=== PATIENT | male | born 1955 | race Caucasian/White ===

== ENCOUNTER 2020-04-05 08:52 | Outpatient (REF) | payer OTHER, SELFPAY | END 2020-04-05 08:53 | disposition home or self-care (01) | LOC: HO.BBR 08:52 | PROVIDERS: Visit Provider Family Medicine | DX: E83.110 Hereditary hemochromatosis (principal) | CPT/HCPCS: 99195 ==

== ENCOUNTER 2020-06-01 08:49 | Outpatient (REF) | payer OTHER, SELFPAY | END 2020-06-01 08:50 | disposition home or self-care (01) | LOC: HO.BBR 08:49 | PROVIDERS: Visit Provider Family Medicine | DX: Z13.89 Encounter for screening for other disorder (principal) ==

== ENCOUNTER 2020-06-01 09:26 | Outpatient (REF) | payer SELFPAY ==
[2020-06-01 10:11] LABS: Cholesterol 177 mg/dL
== END 2020-06-01 09:27 | disposition home or self-care (01) ==
LOC: HO.LNC 09:26
PROVIDERS: Visit Provider Pathology Anatomic Pathology & Clinical Pathology
DX: Z76.89 Persons encountering health services in other specified circumstances (principal)
CPT/HCPCS: 82465

== ENCOUNTER 2020-08-15 09:55 | Outpatient (REF) | payer OTHER, SELFPAY | END 2020-08-15 09:56 | disposition home or self-care (01) | LOC: HO.BBR 09:55 | PROVIDERS: Visit Provider Family Medicine | DX: Z13.89 Encounter for screening for other disorder (principal) ==

== ENCOUNTER 2020-10-13 09:04 | Outpatient (REF) | payer OTHER, SELFPAY | END 2020-10-13 09:05 | disposition home or self-care (01) | LOC: HO.BBR 09:04 | PROVIDERS: Visit Provider Family Medicine | DX: Z13.89 Encounter for screening for other disorder (principal) ==

== ENCOUNTER 2020-12-11 08:58 | Outpatient (REF) | payer MEDICARE, SELFPAY | END 2020-12-11 08:59 | disposition home or self-care (01) | LOC: HO.BBR 08:58 | PROVIDERS: PCP Nurse Practitioner Family; Visit Provider Nurse Practitioner Family | DX: Z13.89 Encounter for screening for other disorder (principal) ==

== ENCOUNTER 2021-02-09 08:53 | Outpatient (REF) | payer MEDICARE, SELFPAY | END 2021-02-09 08:54 | disposition home or self-care (01) | LOC: HO.BBR 08:53 | PROVIDERS: Visit Provider Nurse Practitioner Family | DX: Z13.89 Encounter for screening for other disorder (principal) ==

== ENCOUNTER 2021-04-10 08:32 | Outpatient (REF) | payer MEDICARE, SELFPAY | END 2021-04-10 08:33 | disposition home or self-care (01) | LOC: HO.BBR 08:32 | PROVIDERS: Visit Provider Nurse Practitioner Family | DX: Z13.89 Encounter for screening for other disorder (principal) ==

== ENCOUNTER 2021-06-19 08:45 | Outpatient (REF) | payer MEDICARE, SELFPAY | END 2021-06-19 08:46 | disposition home or self-care (01) | LOC: HO.BBR 08:45 | PROVIDERS: Visit Provider Nurse Practitioner Family | DX: Z13.89 Encounter for screening for other disorder (principal) ==

== ENCOUNTER 2021-08-16 09:03 | Outpatient (REF) | payer MEDICARE, SELFPAY | END 2021-08-16 09:04 | disposition home or self-care (01) | LOC: HO.BBR 09:03 | PROVIDERS: Visit Provider Nurse Practitioner Family | DX: Z13.89 Encounter for screening for other disorder (principal) ==

== ENCOUNTER 2021-10-12 09:10 | Outpatient (REF) | payer MEDICARE, SELFPAY | END 2021-10-12 09:11 | disposition home or self-care (01) | LOC: HO.BBR 09:10 | PROVIDERS: Visit Provider Nurse Practitioner Family | DX: Z13.89 Encounter for screening for other disorder (principal) ==

== ENCOUNTER 2021-12-17 09:04 | Outpatient (REF) | payer MEDICARE, SELFPAY | END 2021-12-17 09:05 | disposition home or self-care (01) | LOC: HO.BBR 09:04 | PROVIDERS: Visit Provider Nurse Practitioner | DX: Z13.89 Encounter for screening for other disorder (principal) ==

== ENCOUNTER 2022-03-14 10:01 | Outpatient (REF) | payer MEDICARE, SELFPAY | END 2022-03-14 10:02 | disposition home or self-care (01) | LOC: HO.BBR 10:01 | PROVIDERS: Visit Provider Nurse Practitioner | DX: Z13.89 Encounter for screening for other disorder (principal) ==

== ENCOUNTER 2022-05-21 09:00 | Outpatient (REF) | payer MEDICARE, SELFPAY | END 2022-05-21 09:01 | disposition home or self-care (01) | LOC: HO.BBR 09:00 | PROVIDERS: Visit Provider Nurse Practitioner | DX: Z13.89 Encounter for screening for other disorder (principal) ==

== ENCOUNTER 2022-08-02 11:04 | Outpatient (REF) | payer MEDICARE, SELFPAY | END 2022-08-02 11:05 | disposition home or self-care (01) | LOC: HO.BBR 11:04 | PROVIDERS: Visit Provider Nurse Practitioner | DX: Z13.89 Encounter for screening for other disorder (principal) ==

== ENCOUNTER 2022-10-04 09:01 | Outpatient (REF) | payer MEDICARE, SELFPAY | END 2022-10-04 09:02 | disposition home or self-care (01) | LOC: HO.BBR 09:01 | PROVIDERS: Visit Provider Nurse Practitioner | DX: Z13.89 Encounter for screening for other disorder (principal) ==

== ENCOUNTER 2022-12-27 11:06 | Outpatient (REF) | payer MEDICARE, SELFPAY ==
[2022-12-27 11:39] LABS: Hematocrit 41.5 % (42.0-52.0); Hemoglobin 14.3 g/dl (14.0-18.0)
== END 2022-12-27 11:07 | disposition home or self-care (01) ==
LOC: HO.BBR 11:06
PROVIDERS: Visit Provider Nurse Practitioner
DX: E83.110 Hereditary hemochromatosis (principal)
CPT/HCPCS: 36415; 85014; 85018

== ENCOUNTER 2023-03-07 14:16 | Outpatient (REF) | payer MEDICARE, SELFPAY | END 2023-03-07 14:17 | disposition home or self-care (01) | LOC: HO.BBR 14:16 | PROVIDERS: Visit Provider Nurse Practitioner | DX: Z13.89 Encounter for screening for other disorder (principal) ==

== ENCOUNTER 2023-05-14 09:01 | Outpatient (REF) | payer MEDICARE, SELFPAY | END 2023-05-14 09:02 | disposition home or self-care (01) | LOC: HO.BBR 09:01 | PROVIDERS: PCP Nurse Practitioner; Visit Provider Nurse Practitioner | DX: Z13.89 Encounter for screening for other disorder (principal) ==

== ENCOUNTER 2023-08-13 08:59 | Outpatient (REF) | payer MEDICARE, SELFPAY | END 2023-08-13 09:00 | disposition home or self-care (01) | LOC: HO.BBR 08:59 | PROVIDERS: PCP Nurse Practitioner; Visit Provider Nurse Practitioner | DX: Z13.89 Encounter for screening for other disorder (principal) ==

== ENCOUNTER 2023-10-22 10:21 | Outpatient (REF) | payer MEDICARE, SELFPAY | END 2023-10-22 10:22 | disposition home or self-care (01) | LOC: HO.BBR 10:21 | PROVIDERS: PCP Nurse Practitioner; Visit Provider Nurse Practitioner | DX: Z13.89 Encounter for screening for other disorder (principal) ==

== ENCOUNTER 2023-11-13 10:27 | Outpatient (REF) | payer MEDICARE, SELFPAY | END 2023-11-13 10:28 | disposition home or self-care (01) | LOC: HO.BBR 10:27 | PROVIDERS: PCP Nurse Practitioner; Visit Provider Nurse Practitioner | DX: Z13.89 Encounter for screening for other disorder (principal) ==

== ENCOUNTER 2024-01-23 09:04 | Outpatient (REF) | payer MEDICARE, SELFPAY | END 2024-01-23 09:05 | disposition home or self-care (01) | LOC: HO.BBR 09:04 | PROVIDERS: PCP Nurse Practitioner; Visit Provider Nurse Practitioner | DX: Z13.89 Encounter for screening for other disorder (principal) ==

== ENCOUNTER 2024-04-09 09:12 | Outpatient (REF) | payer MEDICARE, SELFPAY | END 2024-04-09 09:13 | disposition home or self-care (01) | LOC: HO.BBR 09:12 | PROVIDERS: PCP Nurse Practitioner; Visit Provider Nurse Practitioner | DX: Z13.89 Encounter for screening for other disorder (principal) ==

== ENCOUNTER 2024-06-21 09:17 | Outpatient (REF) | payer MEDICARE, SELFPAY ==
--- OUTSIDE RECORDS SUMMARY | 2024-06-21 09:20 | XMS_ITS ---
Author Name [facility] Organization Unknown Results Test Name/Text Value Interpretation Date Range Source TSH WITH REFLEX T4 FREE 2.18uIU/mL Normal [id number] 0.55 - 4.78 [facility] LDL 102mg/dL Normal [id number] - 160 [facility] TRIGLYCERIDE WITH LDLD REFLEX 100mg/dL Normal [id number] - 150 [facility] CHOLESTEROL 169mg/dL Normal [id number] - 200 [facility] HDL 47mg/dL Normal 40 - 60 [facility] TRIGLYCERIDE 100mg/dL Normal [id number] - 150 [facility] GFRE 83 Normal [id number] 60 - [facility] FERRITIN 35ng/mL Normal 10 - 307 [facility] PROSTATE SPECIFIC ANTIGEN 0.73ng/mL Normal [id number] 0 - 4 [facility] IRON BINDING CAPACITY,TOTAL 307ug/dL Normal [id number] 250 - 425 [facility] IRON 173ug/dL Normal [id number] 65 - 175 [facility] ALBUMIN 4.6g/dL Normal [id number] 3.2 - 4.8 [facility] SODIUM 139mmol/L Normal [id number] 136 - 145 [facility] GLUCOSE 95mg/dL Normal 74 - 106 [facility] BUN 14mg/dL Normal [id number] 9 - 23 [facility] CALCIUM 9.2mg/dL Normal [id number] 8.7 - 10.4 [facility] BILIRUBIN,TOTAL 0.9mg/dL Normal 0.3 - 1.2 C [facility] CHLORIDE 108mmol/L Above high normal 98 - 107 [facility] POTASSIUM SERUM 4.3mmol/L Normal [id number] 3.5 - 5.1 C [facility] CO2 28mmol/L Normal 20 - 31 [facility] ALKALINE PHOSPHATASE 48U/L Normal [id number] 45 - 1 29 [facility] AST (SGOT) 23U/L Normal 0 - 34 [facility] GLOBULIN 2.4g/dL Normal [facility] A/G RATIO 1.9g/dL Normal [facility] ALT (SGPT) 8U/L Below low normal 10 - 49 [facility] CREATININE 0.95mg/dL Normal 0.7 - 1.3 [facility] BUN/CREAT.RATIO 14.7 Normal [facility] PROTEIN, TOTAL 7g/dL Normal 5.7 - 8.2 [facility] WBC 4K/uL Normal [id number] 3.7 - 10.3 [facility] ABSOLUTE GRANULOCYTES 2.1K/uL Below low normal [id number] 2.2 - 7.3 [facility] ABSOLUTE BASO 0K/uL Normal 0 - 0.2 [facility] RBC 4.44M/uL Normal 4.3 - 6 [facility] IMMATURE GRANULOCYTES 0% Normal 0 - 0 .45 [facility] EOSINOPHILS 3% Normal 0 - 6 [facility] MPV 10fL Normal [id number] 8 - 12 [facility] ABSOLUTE MONOS 0.4K/uL Normal 0.2 - 1.5 CT [facility] BASOPHILS 1% Normal 0 - 2 [facility] NUCLEATED RBC 0% Normal 0 - 0.2 [facility] MCV 92fL Normal [id number] 83 - 102 [facility] MCH 32PG Normal 27 - 34 [facility] HCT 40.9% Normal 40 - 52 [facility] ABSOLUTE LYMPHS 1.4K/uL Below low normal [id number] 1.5 - 4.9 [facility] GRANULOCYTES 52% Normal 23 - 78 [facility] MONOCYTES 10% Normal [id number] 0 - 12 [facility] ABSOLUTE EOS 0.1K/uL Normal [id number] 0 - 0.7 [facility] LYMPHS 35% Normal [id number] 16 - 50 [facility] ABSOLUTE IMMATURE GRANULOCYTES 0K/uL Normal [id number] 0 - 0.3 [facility] HGB 14g/dL Normal [id number] 13.5 - 18 [facility] RDW 11.8% Normal [id number] 11.1 - 13.3 [facility] PLATELET COUNT 154K/uL Normal [id number] 150 - 480 [facility] MCHC 34.2g/dL Normal [id number] 31 - 36 [facility] ABSOLUTE NUCLEATED RBC 0K/uL Normal [id number] 0 - 0.012 [facility] PATIENT FASTING? NO Normal [id number] [facility] FERRITIN 44ng/mL Normal [id number] 26 - 388 [facility] HGB 14.1g/dL Normal [id number] 13.5 - 18 [facility] HCT 41.4% Normal [id number] 40 - 52 [facility] LDL 108 Normal [id number] 0 - 129 [facility] TRIGLYCERIDE WITH LDLD REFLEX 51mg/dL Normal [id number] - 150 [facility] CHOLESTEROL 168mg/dL Normal [id number] - 200 [facility] HDL 50mg/dL Normal [id number] - [facility] TSH WITH REFLEX T4 FREE 1.74uIU/mL Normal [id number] 0.35 - 4.5 [facility] GFRE 99 Normal [id number] 60 - [facility] ALBUMIN 3.7g/dL Normal [id number] 3.4 - 5 [facility] SODIUM 145mmol/L Normal [id number] 136 - 145 [facility] GLUCOSE 106mg/dL Above high normal [id number] 74 - 100 [facility] BUN 14mg/dL Normal [id number] 7 - 18 [facility] CALCIUM 8.8mg/dL Normal [id number] 8.5 - 10.1 [facility] BILIRUBIN,TOTAL 0.8mg/dL Normal [id number] 0.2 - [address] [facility] CHLORIDE 113mmol/L Above high normal [id number] 98 - 107 [facility] POTASSIUM SERUM 4.1mmol/L Normal [id number] 3.5 - 5.1 C [facility] CO2 28mmol/L Normal [id number] 21 - 32 [facility] ALKALINE PHOSPHATASE 52U/L Normal [id number] 50 - 1 36 [facility] AST (SGOT) 16U/L Normal [id number] 15 - 37 [facility] GLOBULIN 3g/dL Normal [id number] 2.4 - 4.2 [facility] A/G RATIO 1.2g/dL Normal [id number] [facility] ALT (SGPT) 19U/L Normal [id number] 12 - 78 [facility] BUN/CREAT.RATIO 17.1 Normal [id number] C [facility] CREATININE 0.82mg/dL Normal [id number] 0.55 - 1.3 [facility] PROTEIN, TOTAL 6.7g/dL Normal [id number] 6.4 - 8.2 CT [facility] PROSTATE SPECIFIC ANTIGEN 0.66ng/mL Normal [id number] 0 - 4.5 [facility] WBC 5.5K/uL Normal [id number] 3.7 - 10.3 [facility] ABSOLUTE GRANULOCYTES 3.7K/uL Normal [id number] 2.2 - 7.3 [facility] ABSOLUTE BASO 0K/uL Normal [id number] 0 - 0.2 [facility] RBC 4.29M/uL Below low normal [id number] 4.3 - 6 [facility] IMMATURE GRANULOCYTES 0% Normal [id number] 0 - 0 .45 [facility] EOSINOPHILS 3% Normal [id number] 0 - 6 [facility] MPV 10fL Normal [id number] 8 - 12 [facility] ABSOLUTE MONOS 0.5K/uL Normal [id number] 0.2 - 1.5 [facility] BASOPHILS 1% Normal [id number] 0 - 2 [facility] NUCLEATED RBC 0% Normal [id number] 0 - 0.2 [facility] MCV 93fL Normal [id number] 83 - 102 [facility] MCH 31PG Normal [id number] 27 - 34 [facility] HCT 39.8% Below low normal [id number] 40 - 52 [facility] ABSOLUTE LYMPHS 1.2K/uL Below low normal [id number] 1.5 - 4.9 [facility] GRANULOCYTES 67% Normal [id number] 23 - 78 [facility] MONOCYTES 9% Normal [id number] 0 - 12 [facility] ABSOLUTE EOS 0.1K/uL Normal [id number] 0 - 0.7 [facility] LYMPHS 21% Normal [id number] 16 - 50 [facility] ABSOLUTE IMMATURE GRANULOCYTES 0K/uL Normal [id number] 0 - 0.3 [facility] HGB 13.2g/dL Below low normal [id number] 13.5 - 18 [facility] RDW 11.8% Normal [id number] 11.1 - 13.3 [facility] PLATELET COUNT 159K/uL Normal [id number] 150 - 480 [facility] MCHC 33.2g/dL Normal [id number] 31 - 36 [facility] ABSOLUTE NUCLEATED RBC 0K/uL Normal [id number] 0 - 0.012 [facility] PATIENT FASTING? YES Normal [id number] [facility] History of Medication Use Medication Directions Dispensed Refills Start Date End Date [facility] dofetilide 500 mcg capsule Take 1 capsule twice a day by oral route. 02/17/2024 completed Plavix 75 mg tablet 1 (one) Oral daily completed Multivital 1 Oral Daily 02/16/2024 compl eted diazepam 5 mg tablet 1 Oral needed 02/16/2024 complete d aspirin 81 mg tablet,delayed release 1 Oral daily 02/16/2024 completed diazepam 10 mg tablet 1/2 Oral as needed 02/16/2024 comple agata mirtazapine 15 mg tablet 1 Oral needed 02/17/2024 complete d Cardizem CD 120 mg capsule,extended release Take 1 capsule every day by oral route. 02/16/2024 completed Bystolic 5 mg tablet 1 Oral needed 02/17/2024 complete d diltiazem CD 180 mg capsule,extended release 24 hr Take 1 capsule every day by oral route. 02/16/2024 completed metoprolol tartrate 25 mg tablet 1 (one) Oral as needed 02/16/2024 completed Eliquis 5 mg tablet Take 1 tablet twice a day by oral route. 02/16/2024 completed pantoprazole 40 mg tablet,delayed release 1 Oral daily 02/16/2024 completed polyethylene glycol (GaviLyte-C) 240 g solution Take 4,000 mL by mouth once as needed for Colonoscopy/GI Procedure Preparation. Take as directed for Colonoscopy/GI Procedure. See administration instructions. 04/28/2022 aborted diazepam (VALIUM) 5 MG tablet Take 5 mg by mouth 4 times daily (every 6 hours) as needed for anxiety. 04/28/2022 active diltiazem (CARDIZEM CD) 120 MG 24 hr capsule Take 1 capsule (120 mg total) by mouth daily. 04/28/2022 aborted ibuprofen (MOTRIN) 200 MG tablet Take 200 mg by mouth 4 times daily (every 6 hours) as needed for mild pain. 04/28/2022 active Multiple Vitamins-Minerals (MULTIVITAMIN ADULT PO) Take by mouth. 04/28/2022 active acetaminophen (TYLENOL) 500 MG tablet Take 500 mg by mouth 4 times daily (every 6 hours) as needed for mild pain. 04/28/2022 active Problems Problem Status Onset Date Problem Type Date of Resoluti on Source Overweight active 2018-03-20 ProblemAct [facility] Sinus node dysfunction active 2020-12-04 [facility] Atrial fibrillation, persistent active 2019-07-05 [facility] Atrial fibrillation active 2019-08-09 [facility] Immunizations Vaccine Date Source Lot Number Status Influenza, Unspecified 04/23/2019 [facility] co mpleted
== END 2024-06-21 09:18 | disposition home or self-care (01) ==
LOC: HO.BBR 09:17
PROVIDERS: PCP Nurse Practitioner; Visit Provider Nurse Practitioner
DX: Z13.89 Encounter for screening for other disorder (principal)

== ENCOUNTER 2024-09-06 09:01 | Outpatient (REF) | payer MEDICARE, SELFPAY | END 2024-09-06 09:02 | disposition home or self-care (01) | LOC: HO.BBR 09:01 | PROVIDERS: PCP Nurse Practitioner; Visit Provider Nurse Practitioner | DX: Z13.89 Encounter for screening for other disorder (principal) ==

== ENCOUNTER 2024-11-16 08:59 | Outpatient (REF) | payer MEDICARE, SELFPAY ==
--- OUTSIDE RECORDS SUMMARY | 2024-11-16 09:27 | XMS_ITS | Encounter Summary ---
Author Organization [facility] Address [address] [place] [address] Care Team Providers Care Tafe Registrar Name Role Phone Micaela Prasad APRN Primary Care Provider [phone] William Ocasio DO Unavailable Encounter Details Date Type Department Care Team (Late st Contact Info) Description 07/03/2021 Prep for Surgery [facility] Heart & V[facility] [place] - Electrophysiology [address] [place] [phone] Kandi Cedeno, CONSTRUCTION SITE CROSSING GUARD [address] [address] Social History Tobacco Use Types Packs/Day Years Used Date Smoking Tobacco: Never Smokeless Tobacco: Never Alcohol Use Standard Drinks/Week Comments Yes 2 (1 standard drink = 0.6 oz pur e alcohol) occasional 2x/ weekly 1 drink Sex and Gender Information Value Date Recorded Sex Assigned at Not on file Legal Sex Male 5:24 PM EDT Gender Identity Not on file Sexual Orientation Not on file COVID-19 Exposure Response Date Recorded In the last month, have you been in contact with someone who was confirmed or suspected to have Coronavirus / COVID-19? No / Unsure 07/04/2021 6:25 AM EST documented as of this encounter Plan of Treatment Not on file documented as of this encounter Visit Diagnoses Not on filedocumented in this encounter Care Teams Tafe Registrar Relationship Specialty Start Date End Date Micaela Prasad APRN PCP - General General Medicine 05/27/18 William Ocasio DO [address] [place] [id number] Stenciling Machine Tender Gastroenterology 09/10/21 documented as of this encounter
== END 2024-11-16 09:00 | disposition home or self-care (01) ==
LOC: HO.BBR 08:59
PROVIDERS: PCP Nurse Practitioner; Visit Provider Nurse Practitioner
DX: Z13.89 Encounter for screening for other disorder (principal)

== ENCOUNTER 2025-01-24 08:05 | Outpatient (REF) | payer MEDICARE, SELFPAY ==
--- OUTSIDE RECORDS SUMMARY | 2025-01-24 08:09 | XMS_ITS ---
Author Name [facility] Organization Unknown Results Test Name/Text Value Interpretation Date Range Source GFRE 83.0 Normal 06/08/2024 60 - [facility] PROSTATE SPECIFIC ANTIGEN 0.73 ng/mL Normal 06/08/2024 0 - 4 [facility] IRON 173.0 ug/dL Normal 06/08/2024 65 - 175 [facility] CREATININE 0.95 mg/dL Normal 06/08/2024 0.7 - 1.3 [facility] ALKALINE PHOSPHATASE 48.0 U/L Normal 06/08/2024 45 - 129 [facility] A/G RATIO 1.9 g/dL Normal 06/08/2024 [facility] BUN 14.0 mg/dL Normal 06/08/2024 9 - 23 [facility] GLOBULIN 2.4 g/dL Normal 06/08/2024 [facility] BILIRUBIN,TOTAL 0.9 mg/dL Normal 06/08/2024 0.3 - 1.2 [facility] BUN/CREAT.RATIO 14.7 Normal 06/08/2024 [facility] CO2 28.0 mmol/L Normal 06/08/2024 20 - 31 [facility] POTASSIUM SERUM 4.3 mmol/L Normal 06/08/2024 3.5 - 5.1 [facility] PROTEIN, TOTAL 7.0 g/dL Normal 06/08/2024 5.7 - 8.2 [facility] ALT (SGPT) 8.0 U/L Below low normal 06/08/2024 10 - 49 C [facility] CHLORIDE 108.0 mmol/L Above high normal 06/08/2024 98 - 107 [facility] AST (SGOT) 23.0 U/L Normal 06/08/2024 0 - 34 [facility] ALBUMIN 4.6 g/dL Normal 06/08/2024 3.2 - 4.8 [facility] GLUCOSE 95.0 mg/dL Normal 06/08/2024 74 - 106 [facility] CALCIUM 9.2 mg/dL Normal 06/08/2024 8.7 - 10.4 [facility] SODIUM 139.0 mmol/L Normal 06/08/2024 136 - 145 [facility] PATIENT FASTING? NO Normal 06/08/2024 [facility] FERRITIN 35.0 ng/mL Normal 06/08/2024 10 - 307 [facility] TSH WITH REFLEX T4 FREE 2.18 uIU/mL Normal 06/08/2024 0.55 - 4.78 [facility] TRIGLYCERIDE 100.0 mg/dL Normal 06/08/2024 - [facility] IRON BINDING CAPACITY,TOTAL 307.0 ug/dL Normal 06/08/2024 250 - 425 [facility] LDL 102.0 mg/dL Normal 06/08/2024 - 160 [facility] HDL 47.0 mg/dL Normal 06/08/2024 40 - 60 [facility] CHOLESTEROL 169.0 mg/dL Normal 06/08/2024 - 200 [facility] TRIGLYCERIDE WITH LDLD REFLEX 100.0 mg/dL Normal 06/08/2024 - 150 [facility] ABSOLUTE BASO 0.0 K/uL Normal 06/08/2024 0 - 0.2 [facility] ABSOLUTE GRANULOCYTES 2.1 K/uL Below low normal 06/08/2024 2.2 - 7.3 [facility] IMMATURE GRANULOCYTES 0.0 % Normal 06/08/2024 0 - 0.4 5 [facility] EOSINOPHILS 3.0 % Normal 06/08/2024 0 - 6 [facility] WBC 4.0 K/uL Normal 06/08/2024 3.7 - 10.3 [facility] MCHC 34.2 g/dL Normal 06/08/2024 31 - 36 [facility] NUCLEATED RBC 0.0 % Normal 06/08/2024 0 - 0.2 [facility] ABSOLUTE EOS 0.1 K/uL Normal 06/08/2024 0 - 0.7 CT[facility] ABSOLUTE IMMATURE GRANULOCYTES 0.0 K/uL Normal 06/08/2024 0 - 0.3 [facility] BASOPHILS 1.0 % Normal 06/08/2024 0 - 2 [facility] PLATELET COUNT 154.0 K/uL Normal 06/08/2024 150 - 480 [facility] ABSOLUTE NUCLEATED RBC 0.0 K/uL Normal 06/08/2024 0 - 0. 012 [facility] MCH 32.0 PG Normal 06/08/2024 27 - 34 [facility] MCV 92.0 fL Normal 06/08/2024 83 - 102 [facility] RDW 11.8 % Normal 06/08/2024 11.1 - 13.3 [facility] HCT 40.9 % Normal 06/08/2024 40 - 52 [facility] GRANULOCYTES 52.0 % Normal 06/08/2024 23 - 78 [facility] MH ABSOLUTE LYMPHS 1.4 K/uL Below low normal 06/08/2024 1.5 - 4.9 [facility] HGB 14.0 g/dL Normal 06/08/2024 13.5 - 18 [facility] MONOCYTES 10.0 % Normal 06/08/2024 0 - 12 [facility] RBC 4.44 M/uL Normal 06/08/2024 4.3 - 6 [facility] LYMPHS 35.0 % Normal 06/08/2024 16 - 50 [facility] ABSOLUTE MONOS 0.4 K/uL Normal 06/08/2024 0.2 - 1.5 [facility] MPV 10.0 fL Normal 06/08/2024 8 - 12 [facility] FERRITIN 44.0 ng/mL Normal 11/11/2023 26 - 388 [facility] HGB 14.1 g/dL Normal 11/11/2023 13.5 - 18 [facility] HCT 41.4 % Normal 11/11/2023 40 - 52 [facility] TSH WITH REFLEX T4 FREE 1.74 uIU/mL Normal 06/05/2023 0.35 - 4.5 [facility] PROSTATE SPECIFIC ANTIGEN 0.66 ng/mL Normal 06/05/2023 0 - 4.5 [facility] HDL 50.0 mg/dL Normal 06/05/2023 - [facility] LDL 108.0 Normal 06/05/2023 0 - 129 [facility] TRIGLYCERIDE WITH LDLD REFLEX 51.0 mg/dL Normal 06/05/2023 - 150 [facility] CHOLESTEROL 168.0 mg/dL Normal 06/05/2023 - 200 [facility] CHLORIDE 113.0 mmol/L Above high normal 06/05/2023 98 - 107 [facility] PROTEIN, TOTAL 6.7 g/dL Normal 06/05/2023 6.4 - 8.2 [facility] 0.82 mg/dL Normal 06/05/2023 0.55 - [facility] GLUCOSE 106.0 mg/dL Above high normal 06/05/2023 74 - 100 [facility] GLOBULIN 3.0 g/dL Normal 06/05/2023 2.4 - 4.2 [facility] BUN/CREAT.RATIO 17.1 Normal 06/05/2023 [facility] ALT (SGPT) 19.0 U/L Normal 06/05/2023 12 - 78 [facility] AST (SGOT) 16.0 U/L Normal 06/05/2023 15 - 37 [facility] A/G RATIO 1.2 g/dL Normal [facility]05[facility]20[facility] POT[facility]SIUM [facility] 4.1 mmol/L Normal 06/05/2023 3.5 - 5.1 [facility] CALCIUM 8.8 mg/dL Normal 06/05/2023 8.5 - 10.1 [facility] ALKALINE PHOSPHATASE 52.0 U/L Normal 06/05/2023 50 - 136 [facility] BUN 14.0 mg/dL Normal 06/05/2023 7 - 18 [facility] ALBUMIN 3.7 g/dL Normal 06/05/2023 3.4 - 5 [facility] SODIUM 145.0 mmol/L Normal 06/05/2023 136 - 145 CT[facility] CO2 28.0 mmol/L Normal 06/05/2023 21 - 32 [facility] H BILIRUBIN,TOTAL 0.8 mg/dL Normal 06/05/2023 0.2 - 1 [facility]H PATIENT FASTING? YES Normal 06/05/2023 CT [facility] GFRE 99.0 Normal 06/05/2023 60 - [facility] PLATELET COUNT 159.0 K/uL Normal 06/05/2023 150 - 480 [facility] ABSOLUTE LYMPHS 1.2 K/uL Below low normal 06/05/2023 1.5 - 4.9 [facility] NUCLEATED RBC 0.0 % Normal 06/05/2023 0 - 0.2 [facility] ABSOLUTE BASO 0.0 K/uL Normal 06/05/2023 0 - 0.2 [facility] ABSOLUTE MONOS 0.5 K/uL Normal 06/05/2023 0.2 - 1.5 [facility] IMMATURE GRANULOCYTES 0.0 % Normal 06/05/2023 0 - 0.4 5 [facility] ABSOLUTE GRANULOCYTES 3.7 K/uL Normal 06/05/2023 2.2 - 7 .3 [facility] LYMPHS 21.0 % Normal 06/05/2023 16 - 50 [facility] HCT 39.8 % Below low normal 06/05/2023 40 - 52 [facility] ABSOLUTE NUCLEATED RBC 0.0 K/uL Normal 06/05/2023 0 - 0. 012 [facility] GRANULOCYTES 67.0 % Normal 06/05/2023 23 - 78 [facility] MH WBC 5.5 K/uL Normal 06/05/2023 3.7 - 10.3 [facility] MCV 93.0 fL Normal 06/05/2023 83 - 102 [facility] RDW 11.8 % Normal 06/05/2023 11.1 - 13.3 [facility] H ABSOLUTE IMMATURE GRANULOCYTES 0.0 K/uL Normal 06/05/2023 0 - 0.3 [facility] ABSOLUTE EOS 0.1 K/uL Normal 06/05/2023 0 - 0.7 [facility] MH RBC 4.29 M/uL Below low normal 06/05/2023 4.3 - 6 CT [facility] MONOCYTES 9.0 % Normal 06/05/2023 0 - 12 [facility] MCH 31.0 PG Normal 06/05/2023 27 - 34 [facility] EOSINOPHILS 3.0 % Normal 06/05/2023 0 - 6 [facility] H MPV 10.0 fL Normal 06/05/2023 8 - 12 [facility] HGB 13.2 g/dL Below low normal 06/05/2023 13.5 - 18 CT [facility] BASOPHILS 1.0 % Normal 06/05/2023 0 - 2 [facility] MCHC 33.2 g/dL Normal 06/05/2023 31 - 36 [facility] History of Medication Use Medication Directions Dispensed Refills Start Date End Date Stat us Cardizem CD 120 mg capsule,extended release Take 1 capsule every day by oral route. 10/19/2021 2 completed polyethylene glycol (GaviLyte-C) 240 g solution Take 4,000 mL by mouth once as needed for Colonoscopy/GI Procedure Preparation. Take as directed for Colonoscopy/GI Procedure. See administration instructions. 09/10/2021 2 aborted diltiazem (CARDIZEM CD) 120 MG 24 hr capsule Take 1 capsule (120 mg total) by mouth daily. 03/20/2021 2 aborted Eliquis 5 mg tablet Take 1 tablet twice a day by oral route. 2 completed diazepam 5 mg tablet 1 Oral needed complete d diazepam (VALIUM) 5 MG tablet Take 5 mg by mouth 4 times daily (every 6 hours) as needed for anxiety. active Problems Problem Status Onset Date Problem Type Date of Resoluti on Source Overweight active 2018-03-20 ProblemAct [facility] Sinus node dysfunction active 2020-12-04 [facility] Atrial fibrillation, persistent active 2019-07-05 ProblemAct [facility] Atrial fibrillation active 2019-08-09 ProblemAct [facility] Immunizations Vaccine Date Source Lot Number Status Influenza, Unspecified 04/23/2019 [facility] mpleted Encounters Encounter Type Encounter Reason Primary Diagnosis Location Date [facility] 11/06/2024 [facility] 06/08/2024 [facility] 02/13/2024 [facility] 11/26/2023 [facility] 11/26/2023 [facility] 11/11/2023 [facility] 10/28/2023 [facility] 06/05/2023 Ambulatory Paroxysmal atria l fibrillation [facility] 08/16/2022 [facility] 06/11/2022 Ambulatory Paroxysmal atria l fibrillation [facility] 04/10/2022 Ambulatory Paroxysmal atria l fibrillation [facility] 10/08/2021 Ambulatory Paroxysmal atria l fibrillation [facility] 08/10/2021 Ambulatory Sick sinus syndrome [facility] [employer] 07/04/2021 Care Team Organization Name Specialty Phone Email Start Date End Da mirta [facility] Adult Basic Education Manager (EC[employer]) [employer] Sales Marketing Manager 10/20/2024 [facility] 10/29/2023 [facility] Cleve Trotter NP Primary Care 07/13/2023 09/09/19 [facility] 04/25/2023 024 [facility] 11/23/2022 [facility] Sergo Poon Primary Care 06/11/2022 09/08/2024 [facility] Cleve Trotter NP Primary Care 06/11/202205/24 [facility] Cleve Trotter NP Primary Care 05/03/2022 [facility] MAYURI OTERO Primary Care 04/10/2022 [facility] MAYURI OTERO Primary Care 07/04/2021 [facility] MAYURI OTERO Primary Care
--- OUTSIDE RECORDS SUMMARY | 2025-01-24 08:09 | XMS_ITS | Encounter Summary ---
Author Organization [facility] Address [address] [place] [address] Care Team Providers Care Men'S Garment Fitter Name Role Phone Micaela Prasad APRN Primary Care Provider William Ocasio DO Unavailable Encounter Details Date Type Department Care Team (Late st Contact Info) Description 07/03/2021 Prep for Surgery [facility] Heart & Vascular [place] - Electrophysiology [address] [place] [phone] Kandi Cedeno, MANAGER VISUAL [address] [address] Social History Tobacco Use Types Packs/Day Years [...] on filedocumented in this encounter Care Teams Men'S Garment Fitter Relationship Specialty Start Date End Date Micaela Prasad APRN PCP - General General Medicine 05/27/18 William Ocasio DO [address] [place] [id number] [facility] 09/10/21 documented as of this encounter
--- OUTSIDE RECORDS SUMMARY | 2025-01-24 08:09 | XMS_ITS | Clinical Summary ---
Author Organization [facility] Address [address] [place] [address] Care Team Providers Care Rotating Equipment Specialist Name Role Phone Unavailable Primary Care Provider Unavailabl e Allergies No known active allergies Medications Medication Sig Dispensed Refills Start Date End Date Status dilTIAZem (CARDIZEM CD) 120 MG 24 hr capsule TAKE 1 CAPSULE EVERY DAY BY ORAL ROUTE. 0 10/19/2021 Active Active Problems Problem Noted Date Diagnosed Date Patellofemoral pain syndrome of left knee 2021 Family History Medical History Relation Name Comments Cancer Mother Relation Name Status Comments Mother Social History Tobacco Use Types Packs/Day Years Used Date Smoking Tobacco: Never Smokeless Tobacco: Never Alcohol Use Standard Drinks/Week Comments Yes 1 (1 standard drink = 0.6 oz pur e alcohol) Sex and Gender Information Value Date Recorded Sex Assigned at Male 10/26/2021 10:00 AM EDT Gender Identity Male 10/26/2021 10:00 AM EDT Sexual Orientation Not on file Job Start Date Occupation Industry Not on file Not on file Not on file Last Filed Vital Signs Vital Sign Reading Time Taken Comments Blood Pressure - - Pulse - - Temperature - - Respiratory Rate - - Oxygen Saturation - - Inhaled Oxygen Concentration - - Weight 100.7 kg (222 lb) 10/29/2021 9:37 AM EDT Height 182.9 cm (6') 10/29/2021 9:37 AM EDT Body Mass Index 30.11 10/29/2021 9:37 AM EDT Plan of Treatment Health Maintenance Due Date Last Done Comments Hepatitis C Screening 1955 COVID-19 Vaccine (#1) 1954 Depression Screening 1966 Preventative Health Evaluation 01/17/1972 DTap / Tdap / Td (1 - Tdap) 1973 Colon Cancer Screening (Colonoscopy) 1999 Shingrix-Zoster Vaccine (1 of 2) 01/17/2004 Fall Risk Assessment 2019 Pneumococcal Vaccine (1 of 1 - PCV) 2019 Influenza Vaccine (#1) 2025 RSV Adult > 60+ Yrs or Pregn ant (1 - 1-dose 75+ series) 2029 Hepatitis B Vaccines Aged Out No long er eligible based on patient's age to complete this topic RSV Ped < 20 months Aged Out No longe r eligible based on patient's age to complete this topic
--- OUTSIDE RECORDS SUMMARY | 2025-01-24 08:09 | XMS_ITS | Clinical Summary ---
Author Organization [facility] Address [address] [place] [address] Care Team Providers Care Phys Therapist Name Role Phone Kwasi Woods Primary Care Provider Unav ailable Medications Apixaban (Eliquis) 5 MG Tab TAKE 1 TABLET (5 MG TOTAL) BY MOUTH EVERY 12 (TWELVE) HOURS AROUND THE 0 07/28/2019 Active Dofetilide (TIKOSYN) 500 MCG capsule TAKE 1 CAPSULE every 12 hours 0 08/11/2019 Active Metoprolol Tartrate (LOPRESSOR) 25 MG tablet TAKE 1 TABLET BY MOUTH TWICE DAILY 180 0 08/11/2019 Active diazePAM (VALIUM) 5 MG tablet 1/2-1 tablet daily as needed 0 09/02/2019 Active Active Problems Problem Noted Date Diagnosed Date Atrial fibrillation 09/02/2019 Anxiety 09/02/2019 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 HST ordered to further evaluate. Impression - [id number]: Discussed getting repeat PSG to evaluate GIOVANA while patient is supine during REM sleep. However, as patient reports never sleeping in the supine position don't feel this test would be beneficial at this time. Also considered ordering PSG/MSLT given short sleep onset and REM latency but patient denies any sleep paralysis, cataplexy or hypnagogic hallucinations. Patient reports only sleeping for 6-6 1/2 hours recently due to COVID-19 which is a more likely cause for his sleepiness. Advised patient to increase hours slept per night to 8 hours. Also encouraged weight loss. Encouraged positional therapy Will f/u in 6 months or sooner as needed.; Description: 10/22/19 PSG ([facility]): AHI = 1.7 in general; REM = 5.3; Non- REM = 0.2; Supine = 0.0; Non-Supine = 1.921; Alexis O2 = 88%. Oxygen was below 89% for 0.2 minutes. There was no supine REM sleep noted. Sleep latency = 1.7 minutes; REM latency = 53 minutes. No snoring (214 lbs; BMI: 29) Family History Medical History Relation Name Comments Heart Disorder Brother atrial fibril lation : Father, Brother Other Brother sleep apnea : F ather, Brother Heart Disorder Father atrial fibril lation : Father, Brother Other Father sleep apnea : F ather, Brother Stroke Other stroke : Grandm other Relation Name Status Comments Brother Father Other Social History Tobacco Use Types Packs/Day Years Used Date Smoking Tobacco: Never Assessed Comments:Smoking Status:Non- smoker Sex and Gender Information Value Date Recorded Sex Assigned at Not on file Legal Sex Male 5:32 PM EDT Gender Identity Not on file Sexual Orientation Not on file Last Filed Vital Signs Vital Sign Reading Time Taken Comments Blood Pressure 120/80 09/02/2019 10:58 AM EDT Pulse 44 09/02/2019 10:58 AM EDT Temperature - - Respiratory Rate 16 09/02/2019 10:58 AM EDT Oxygen Saturation - - Inhaled Oxygen Concentration - - Weight 97.2 kg (214 lb 6 oz) 09/02/2019 10:58 AM EDT Height 182.9 cm (6') 09/02/2019 10:58 AM EDT Body Mass Index 29.07 09/02/2019 10:58 AM EDT Plan of Treatment Health Maintenance Due Date Last Done Comments Hepatitis C Screening 1955 DTaP/Tdap/Td (1 - Tdap) 01/17/1972 Colon Cancer Screening 1999 Pneumococcal 50+ years (1 of 1 - PCV) 01/17/2004 Zoster (Shingrix) (1 of 2) 01/17/2004 COVID-19 Vaccine ( - 2023-2 5 season) 2024 Influenza (#1) 2025 RSV (1 - 1-dose 75+ series) 2029 Abdominal Aorta Imaging Discontinued HPV Vaccine (No Doses Required) Completed Hep A Aged Out No longer eligi ble based on patient's age to complete this topic Hep B Aged Out No longer eligi ble based on patient's age to complete this topic Hib Aged Out No longer eligi ble based on patient's age to complete this topic Meningococcal ACWY Aged Out No longer eligible based on patient's age to complete this topic Zoster (Zostavax) Discontinued Care Teams Phys Therapist Relationship Specialty Start Date End Date Kwasi Woods PCP - General 01/27/23
== END 2025-01-24 08:06 | disposition home or self-care (01) ==
LOC: HO.BBR 08:05
PROVIDERS: PCP Nurse Practitioner; Visit Provider Nurse Practitioner
DX: Z13.89 Encounter for screening for other disorder (principal)

== ENCOUNTER 2025-04-08 07:58 | Outpatient (REF) | payer MEDICARE, SELFPAY ==
--- OUTSIDE RECORDS SUMMARY | 2025-04-08 08:01 | XMS_ITS | Encounter Summary ---
Author Organization [facility] Address [address] [place] [address] Care Team Providers Care Route Cdl Driver Name Role Phone Micaela Prasad APRN Primary Care Provider [phone] William Ocasio DO Unavailable Encounter Details Date Type Department Care Team (Late st Contact Info) Description 10/20/2020 Scanned Document [address] [place] [phone] Provider, Generic Social History Tobacco Use Types Packs/Day Years Used Date Smoking Tobacco: Never Smokeless Tobacco: Never Alcohol Use Standard Drinks/Week Comments Yes 4 (1 standard drink = 0.6 oz pur e alcohol) occ Sex and Gender Information Value Date Recorded Sex Assigned at Not on file Legal Sex Male 5:24 PM EDT Gender Identity Not on file Sexual Orientation Not on file COVID-19 Exposure Response Date Recorded In the last month, have you been in contact with someone who was confirmed or suspected to have Coronavirus / COVID-19? No / Unsure 10/23/2020 1:31 PM EDT documented as of this encounter Functional Status documented as of this encounter Plan of Treatment Not on file documented as of this encounter Procedures Procedure Name Priority Date/Time Associated Diagnosis Comments HOLTER MONITOR - 24 HOUR 10/23/2020 HOLTER MONITOR - 24 HOUR 10/23/2020 HOLTER MONITOR - 24 HOUR 10/23/2020 HOLTER MONITOR - 24 HOUR 10/23/2020 HOLTER MONITOR - 24 HOUR 10/20/2020 documented in this encounter Results * HOLTER MONITOR - 24 HOUR (10/23/2020) Anatomical Region Laterality Modality Other Narrative 10/23/2020 Ordered by an unspecified provider. us Generic Provider [facility] ORDERABLES Final Result * HOLTER MONITOR - 24 HOUR (10/23/2020) Anatomical Region Laterality Modality Other Narrative 10/23/2020 Ordered by an unspecified provider. us Generic Provider CV CARDIAC SERVICES ORDERABLES Final Result * HOLTER MONITOR - 24 HOUR (10/23/2020) Anatomical Region Laterality Modality Other Narrative 10/23/2020 Ordered by an unspecified provider. us Generic Provider CV CARDIAC SERVICES ORDERABLES Final Result * HOLTER MONITOR - 24 HOUR (10/23/2020) Anatomical Region Laterality Modality Other Narrative 10/23/2020 Ordered by an unspecified provider. us Generic Provider CV CARDIAC SERVICES ORDERABLES Final Result * HOLTER MONITOR - 24 HOUR (10/20/2020) Anatomical Region Laterality Modality Other Narrative 10/20/2020 Ordered by an unspecified provider. us Generic Provider CV CARDIAC SERVICES ORDERABLES Final Result documented in this encounter Visit Diagnoses Not on filedocumented in this encounter Care Teams Route Cdl Driver Relationship Specialty Start Date End Date Micaela Prasad APRN PCP - General General Medicine 05/27/18 William Ocasio DO [address] [place] [address] Food Porter Gastroenterology 09/10/21 documented as of this encounter
--- OUTSIDE RECORDS SUMMARY | 2025-04-08 08:01 | XMS_ITS | Encounter Summary ---
Author Organization [facility] Address [address] [place] [address] Care Team Providers Care Issuing Operator Name Role Phone Micaela Prasad APRN Primary Care Provider [phone] William Ocasio DO Unavailable Encounter Details Date Type Department Care Team (Late st Contact Info) Description 11/09/2019 Scanned Document [address] [facility] [address] [place] [address] [phone] Cardiology, Scan Social History Tobacco Use Types Packs/Day Years Used Date Smoking Tobacco: Never Smokeless Tobacco: Never Alcohol Use Standard Drinks/Week Comments Yes 4 (1 standard drink = 0.6 oz pur e alcohol) Sex and Gender Information Value Date Recorded Sex Assigned at Not on file Legal Sex Male 5:24 PM EDT Gender Identity Not on file Sexual Orientation Not on file documented as of this encounter Plan of Treatment Not on file documented as of this encounter Visit Diagnoses Not on filedocumented in this encounter Care Teams Issuing Operator Relationship Specialty Start Date End Date Micaela Prasad APRN PCP - General General Medicine 05/27/18 William Ocasio DO [address] [place] [address] Mash Filter Cloth Changer Gastroenterology 09/10/21 documented as of this encounter
--- OUTSIDE RECORDS SUMMARY | 2025-04-08 08:01 | XMS_ITS | Encounter Summary ---
Author Organization [facility] Address [address] [place] [address] Care Team Providers Care Salon Sales Consultant Name Role Phone Osmar Micaela Ayers APRN Primary Care Provider [phone] William Ocasio DO Unavailable Reason for Visit * Reason Comments Advice Only Encounter Details Date Type Department Care Team ([facility] st Contact Info) Description 12/21/2020 Telephone [facility] Heart & Vascular [place] - Electrophysiology [address] [place] [phone] Hilario Lopes MD [address] [phone] Advice Only Social History Tobacco Use Types Packs/Day Years [...] have Coronavirus / COVID-19? No / Unsure 12/22/2020 7:13 AM EDT documented as of this encounter Functional Status * Level of Risk per Screen Answer Date of Assessment Author Low Risk 12/22/2020 7:21 AM EDT Guerita Beal RN documented as of this encounter Miscellaneous Notes * Telephone Encounter - Kristopher Small RN - 12/21/2020 1:58 PM EDT I called him back, let him know it's a 0545 a.m. arrival time tomorrow. documented in this encounter Plan of Treatment Not on file documented as of this encounter Visit Diagnoses Not on filedocumented in this encounter Care Teams Salon Sales Consultant Relationship Specialty Start Date End Date Micaela Prasad APRN PCP - General General Medicine 05/27/18 William Ocasio DO [address] [place] [address] Sleeve Presser Operator Gastroenterology 09/10/21 documented as of this encounter
--- OUTSIDE RECORDS SUMMARY | 2025-04-08 08:01 | XMS_ITS | Clinical Summary ---
Author Organization [facility] Address [address] [place] [address] Care Team Providers Care Pyrotechnics Press Tender Name Role Phone Micaela Prasad APRN Primary Care Provider [phone] William Ocasio DO Unavailable Allergies No known active allergies Medications diazepam (VALIUM) 5 MG tablet Take 5 mg by mouth 4 times daily (every 6 hours) as needed for anxiety. Active acetaminophen (TYLENOL) 500 MG tablet Take 500 mg by mouth 4 times daily (every 6 hours) as needed for mild pain. Active ibuprofen (MOTRIN) 200 MG tablet Take 200 mg by mouth 4 times daily (every 6 hours) as needed for mild pain. Active Multiple Vitamins-Mineral s (MULTIVITAMIN ADULT PO) Take by mouth. 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 Overview (12/04/2020): Added automatically from request for surgery [id number] Atrial fibrillation 08/09/2019 Atrial fibrillation, persistent 07/05/2019 Immunizations Immunization Administration Dates Next Due Influenza, Unspecified 04/23/2019 Family History Medical History Relation Name Comments Atrial fibrillation Father Stroke Father Pancreatic cancer Mother Relation Name Status Comments Father Mother Social History Tobacco Use Types Packs/Day Years Used Date Smoking Tobacco: Never Smokeless Tobacco: Never Tobacco Cessation:Counseling Given: Not Answered Alcohol Use Standard Drinks/Week Comments Yes 2 (1 standard drink = 0.6 oz pur e alcohol) occasional 2x/ weekly 1 drink Sex and Gender Information Value Date Recorded Sex Assigned at Not on file Legal Sex Male 5:24 PM EDT Gender Identity Not on file Sexual Orientation Not on file Last Filed Vital Signs Vital Sign Reading Time Taken Comments Blood Pressure 112/61 08/16/2022 9:51 AM EST Pulse 66 08/16/2022 9:51 AM EST Temperature 36.3 C (97.4 F) 07/04/2021 10:25 AM EST Respiratory Rate 21 07/04/2021 2:45 PM EST Oxygen Saturation 95% 07/04/2021 2:45 PM EST Inhaled Oxygen Concentration - - Weight 98.9 kg (218 lb) 04/10/2022 8:09 AM EDT Height 182.9 cm (6') 04/10/2022 8:09 AM EDT Body Mass Index 29.57 04/10/2022 8:09 AM EDT Plan of Treatment Health Maintenance Due Date Last Done Comments Advance Care Planning 1955 Hepatitis C Virus Screening 1955 DTaP/Tdap/Td Vaccines (1 - Tdap) 1973 Pneumococcal Vaccines 50+ (1 of 1 - PCV) 01/17/2004 Zoster (Shingles) Vaccine (1 of 2) 01/17/2004 RSV Vaccine 50 years and older and Patients (1 - Risk 60-74 years 1-dose series) 2014 Influenza Vaccine 01/21/2025 05/03/2022, , 04/18/2020, Additional history exists COVID-19 Vaccine ( - 2024- season) 2025 05/16/2021, 09/04/2020, 08/07/2020 Colonoscopy 10/31/2026 10/31/2021 (Prev iously Completed), 07/01/2019 Hepatitis B Vaccines Aged Out No long er eligible based on patient's age to complete this topic Medical Devices Implanted Type Area Customer Trainer Device Identifier Shelf Expiration Date Model / Serial / Lot 5076-58 Lead Pacing 58cm 6.2fr 2mm 10mm Spc Sm Straight Atr Vntrc - [id number] Implanted:Qty : 1 on 12/22/2020 by Hilario Lopes MD at [facility] Lead [employer] MINIM[employer]VASIVE T [id number] 10/06/2022 5076-58 / [id number] Lead Pacing 52cm 6.2fr 2mm 10mm Spc Sm Straight Atr Vntrc - [id number] Implanted:Qty : 1 on 12/22/2020 by Hilario Lopes MD at [facility] Lead [employer] MIN[employer]VAS[employer] T [id number] 10/06/2022 5076-52 / [id number] / Description:52cm [id number] Pacemaker Cardiac 7.4mm 50.8x46.6mm Gerty Xt Dr Jessy Ferrer - [id number] Implanted:Qty : 1 on 12/22/2020 by Hilario oLpes MD at [facility] Pacemaker [employer] MINIMALLY INVASIVE T [id number] 05/06/2022 [id number] / [id number] / Procedures Procedure Name Priority Date/Time Associated Diagnosis Comments COLONOSCOPY (CC) Routine 07/01/2019 from Last 3 Months or Most Recently Relevant to Health Maintenance Results * COLONOSCOPY (CC) (07/01/2019) Enrike Hollingsworth MD AMB ORDERABLE PERFORMABLE F inal Result from Last 3 Months or Most Recently Relevant to Health Maintenance Insurance [facility] Advance Directives * Full Code (Latest Code Status on File) Date Activated Date Inactivated Comments 07/04/2021 10:30 AM * Full Code Date Activated Date Inactivated Comments 12/22/2020 1:09 PM 07/04/2021 5:59 AM * Full Code Date Activated Date Inactivated Comments 08/09/2019 7:49 AM 12/22/2020 5:50 AM Question Answer Comments Decision Thoroughly Discussed with: Patient * Full Code Date Activated Date Inactivated Comments 07/05/2019 7:30 AM 07/06/2019 7:09 AM Care Teams Pyrotechnics Press Tender Relationship Specialty Start Date End Date Micaela Prasad APRN PCP - General General Medicine 05/27/18 William Ocasio DO [address] [place] [id number] Core Feeder Gastroenterology 09/10/21
--- OUTSIDE RECORDS SUMMARY | 2025-04-08 08:01 | XMS_ITS | Clinical Summary ---
Author Organization [facility] Address [address] [place] [address] Care Team Providers Care Stencil Printer Name Role Phone Kwasi Woods Primary Care [...] 09/02/2019 Hypersomnia 09/02/2019 Overview (07/27/2023): Impression - [id number]: Suspect secondary to undiagnosed/untreated GIOVANA. HST ordered to further evaluate. Impression - [id number]: Discussed getting repeat PSG to evaluate GIOVANA [...] or sooner as needed.; Description: 10/22/19 PSG ([facility]): AHI = 1.7 in general; REM = [...] Screening 1954 DTaP/Tdap/Td (1 - Tdap) 01/17/1972 Pneumococcal 50+ years (1 of 1 - PCV) 01/17/2004 Zoster (Shingrix) (1 of 2) 01/17/2004 COVID-19 Vaccine ( - 2024-2 6 season) 2025 Influenza (#1) 2025 RSV (1 - 1-dose [...] this topic Zoster (Zostavax) Discontinued Care Teams Stencil Printer Relationship Specialty Start Date End Date Kwasi Woods PCP - General 01/27/23
--- OUTSIDE RECORDS SUMMARY | 2025-04-08 08:01 | XMS_ITS | Encounter Summary ---
Author Organization [facility] Address [address] [place] [address] Care Team Providers Care Elastic Cutter Name Role Phone Micaela Prasad APRN Primary Care Provider William Ocasio DO Unavailable Encounter Details Date Type Department Care Team (Late st Contact Info) Description 05/23/2021 Telephone [facility] Heart & Vascular [place] - Electrophysiology [address] [place] [phone] Hilario Lopes MD [address] [address] Social History Tobacco Use Types Packs/Day Years [...] have Coronavirus / COVID-19? No / Unsure 05/24/2021 3:27 PM EST documented as of this encounter Plan of Treatment Not on file documented as of this encounter Visit Diagnoses Not on filedocumented in this encounter Care Teams Elastic Cutter Relationship Specialty Start Date End Date Micaela Prasad APRN PCP - General General Medicine 05/27/18 William Ocasio DO [address] [place] [address] Target Man Gastroenterology 09/10/21 documented as of this encounter
--- OUTSIDE RECORDS SUMMARY | 2025-04-08 08:01 | XMS_ITS | Encounter Summary ---
Author Organization [facility] Address [address] [place] [address] Care Team Providers Care Driver Recruiter Name Role Phone Micaela Prasad APRN Primary Care Provider William Ocasio DO Unavailable Reason for Visit * Reason Comments Medication Refill Encounter Details Date Type Department Care Team (Late st Contact Info) Description 09/10/2020 Refill [facility] Heart & Vascular [place] - Electrophysiology [address] [place] [phone] Colt Delvalle, AUTO WRECKER 85 [facility] [address] [place] [phone] Medication Refill Social History Tobacco Use Types Packs/Day Years [...] have Coronavirus / COVID-19? No / Unsure 09/12/2020 3:00 PM EDT documented as of this encounter Plan of Treatment Scheduled Orders Name Type Priority Associated Diagnoses Orde r Schedule Basic metabolic panel Lab Routine Other persistent atrial fibrillation Ordered: 09/11/2020 Magnesium Lab Routine Other persistent atrial fibrillation Ordered: 09/11/2020 documented as of this encounter Visit Diagnoses Diagnosis Other persistent atrial fibrillation (HCC) documented in this encounter Care Teams Driver Recruiter Relationship Specialty Start Date End Date Micaela Prasad APRN PCP - General General Medicine 05/27/18 William Ocasio DO [address] [place] [address] Punch Press Setter Gastroenterology 09/10/21 documented as of this encounter
--- OUTSIDE RECORDS SUMMARY | 2025-04-08 08:01 | XMS_ITS | Encounter Summary ---
Author Organization [facility] Address [address] [place] [address] Care Team Providers Care Floating Operator Name Role Phone Micaela Prasad APRN Primary Care Provider [phone] William Ocasio DO Unavailable Encounter Details Date Type Department Care Team (Late st Contact Info) Description 12/04/2020 Telephone [facility] Heart & Vascular [place] - Electrophysiology [address] [place] [phone] Hilario Lopes MD [address] [place] [address] [phone] Social History Tobacco Use Types Packs/Day Years [...] have Coronavirus / COVID-19? No / Unsure 11/29/2020 8:17 AM EDT documented as of this encounter Miscellaneous Notes * Telephone Encounter - Kandi Cedeno APRN - 12/04/2020 2:11 PM EDT Procedure Instructions: 1. Your procedure (dual chamber pacemaker implantation) will be performed on December 22, 2020 at [facility] by Dr. Lopes 2. Nothing to eat after midnight on December 22, 2020. 3. Use the special soap, Hibiclens (chlorhexidine) scrub brushes the night before and the morning of the procedure on your left chest and arm. 4. Please have blood work done within 7 days of your procedure date. 5. If you use insulin or any oral medications for diabetes, please do not take them the morning of the procedure. 6. With the exception of Dofetilide, please hold all medications during the morning of procedure 7. Take your other medication with a sip of water the morning of the procedure. 8. Continue your present medical regimen unchanged for now. 9. Our office will contact you about the time to arrive to the hospital. If you have any questions regarding your procedure please call our offices at [phone]. Kandi Cedeno APRN 12/04/20 2:16 PM documented in this encounter Plan of Treatment Not on file documented as of this encounter Visit Diagnoses Not on filedocumented in this encounter Care Teams Floating Operator Relationship Specialty Start Date End Date Micaela Prasad APRN PCP - General General Medicine 05/27/18 William Ocasio DO [address] [place] [address] Neuropsychology Service Director Gastroenterology 09/10/21 documented as of this encounter
--- OUTSIDE RECORDS SUMMARY | 2025-04-08 08:01 | XMS_ITS | Encounter Summary ---
Author Organization [facility] Address [address] [place] [address] Care Team Providers Care Direct Customer Service Representative Name Role Phone Micaela Prasad APRN Primary Care Provider [phone] William Ocasio DO Unavailable Encounter Details Date Type Department Care Team (Late st Contact Info) Description 12/08/2020 Scanned Document [address] [place] [phone] Provider, Generic Social History Tobacco Use Types [...] AM EDT documented as of this encounter Plan of Treatment Not on file documented as of this encounter Visit Diagnoses Not on filedocumented in this encounter Care Teams Direct Customer Service Representative Relationship Specialty Start Date End Date Micaela Prasad APRN PCP - General General Medicine 05/27/18 [place] [address] [place] [address] Manager Employment Gastroenterology 09/10/21 documented as of this encounter
--- OUTSIDE RECORDS SUMMARY | 2025-04-08 08:01 | XMS_ITS | Encounter Summary ---
Author Organization [facility] Address [address] [place] [address] Care Team Providers Care Manager Developmental Name Role Phone Micaela Prasad APRN Primary Care Provider [phone] William Ocasio DO Unavailable Encounter Details Date Type Department Care Team (Late st Contact Info) Description 10/25/2021 Scanned Document [facility] [place] [id number] [address] [phone] William Ocasio, [address] [address] Social History Tobacco Use Types Packs/Day Years [...] Exposure Response Date Recorded In the last 10 days, have yo u been in contact with someone who was confirmed or suspected to have Coronavirus/COVID-19? No / Unsure 10/08/2021 8:24 AM EDT documented as of this encounter Plan of Treatment Not on file documented as of this encounter Procedures Procedure Name Priority Date/Time Associated Diagnosis Comments PATHOLOGY REPORT 10/25/2021 11:0 4 AM EDT documented in this encounter Results * PATHOLOGY REPORT (10/25/2021 11:04 AM EDT) William Ocasio DO PATHOLOGY/CYTOLOGY ORDERABLES Fi nal Result documented in this encounter Visit Diagnoses Not on filedocumented in this encounter Care Teams Manager Developmental Relationship Specialty Start Date End Date Micaela Prasad, ORDER CLERK PCP - General General Medicine 05/27/18 William Ocasio DO [address] [place] [address] Rheumatology Specialist Gastroenterology 09/10/21 documented as of this encounter
--- OUTSIDE RECORDS SUMMARY | 2025-04-08 08:01 | XMS_ITS | Encounter Summary ---
Author Organization Formerly [facility] Address [address] [place] [address] Care Team Providers Care Plumber Gasfitter Name Role Phone Micaela Prasad APRN Primary Care Provider [phone] William Ocasio DO Unavailable Reason for Referral * Cardiology (Routine) - Closed Specialty Diagnoses / Procedures Referred By Contact Referred To Contact Cardiac Electrophysiology / Cardiology Diagnoses Atrial fibrillation, unspecified type ([facility]) Jose Uribe MD [address] [facility] [address] [place] [address] Phone: tel: fax: [facility] Heart & Vascular [place] - Electrophysiology [address] [place] [phone] Phone: tel:[phone] fax:[phone] Referral ID Status Reason Start Date Expiration Date V isits Requested Visits Authorized [id number] Closed Specialty Services Required 04/07/2019 04/22/2019 1 1 Comments First available MD Encounter Details Date Type Department Care Team (Late st Contact Info) Description 04/02/2019 Community Orders Consulting Cardiologists, [address] [facility] [address] [place] [phone] Jose Uribe MD [address] [place] [address] [address] [place] [address] Atrial fibrillation, unspecified type (HCC) (Primary Dx) Social History Tobacco Use Types Packs/Day Years [...] of this encounter Plan of Treatment Scheduled Referrals Name Type Priority Associated Diagnoses Order Schedule Amb Referral to Cardiac Electrophysiology Outpatient Referral Routine Atrial fibrillation, unspecified type (HCC) Ordered: 04/02/2019 documented as of this encounter Visit Diagnoses Diagnosis Atrial fibrillation, unspecified type (HCC)- Primary documented in this encounter Care Teams Plumber Gasfitter Relationship Specialty Start Date End Date Micaela Prasad APRN PCP - General General Medicine 05/27/18 William Ocasio DO [address] [place] [address] Rate Setter Gastroenterology 09/10/21 documented as of this encounter
--- OUTSIDE RECORDS SUMMARY | 2025-04-08 08:01 | XMS_ITS | Encounter Summary ---
Author Organization [facility] Address [address] [place] [address] Care Team Providers Care Television Production Assistant Name Role Phone Micaela Prasad APRN Primary Care Provider [phone] William Ocasio DO Unavailable Encounter Details Date Type Department Care Team (Late st Contact Info) Description 12/08/2020 Telephone [facility] Heart & Vascular [place] - Electrophysiology [address] [place] [phone] Hilario Lopes MD [address] [place] [id number] Social History Tobacco Use Types Packs/Day Years [...] Telephone Encounter - Kristopher Small RN - 12/08/2020 1:21 PM EDT Called Thad back and relayed that Dr. Lopes is fine with his treatment plan. He appreciated the follow up call documented in this encounter Plan of Treatment Not on file documented as of this encounter Visit Diagnoses Not on filedocumented in this encounter Care Teams Television Production Assistant Relationship Specialty Start Date End Date Micaela Prasad APRN PCP - General General Medicine 05/27/18 William Ocasio DO [address] [place] [phone] Home Health Attendant Gastroenterology 09/10/21 documented as of this encounter
--- OUTSIDE RECORDS SUMMARY | 2025-04-08 08:01 | XMS_ITS | Encounter Summary ---
Author Organization [facility] Address [address] [place] [address] Care Team Providers Care Professor Of Archaeology Name Role Phone Micaela Prasad INPUT OUTPUT CLERK Primary Care Provider [phone] William Ocasio DO Unavailable Encounter Details Date Type Department Care Team (Late st Contact Info) Description 07/03/2021 Prep for Surgery [facility] Heart & Vascular [place] - Electrophysiology [address] [place] [phone] Kandi Cedeno, INPUT OUTPUT CLERK [address] [phone] Social History Tobacco Use Types Packs/Day Years [...] AM EST documented as of this encounter Functional Status * Level of Risk per Screen Answer Date of Assessment Author Low Risk 07/04/2021 6:35 AM EST Zena Sánchez RN documented as of this encounter Plan of Treatment Not on file documented as of this encounter Visit Diagnoses Not on filedocumented in this encounter Care Teams Professor Of Archaeology Relationship Specialty Start Date End Date Micaela Prasad APRN PCP - General General Medicine 05/27/18 William Ocasio DO [address] [place] [address] Metalworking Specialist Gastroenterology 09/10/21 documented as of this encounter
--- OUTSIDE RECORDS SUMMARY | 2025-04-08 08:01 | XMS_ITS | Encounter Summary ---
Author Organization [facility] Address [address] [place] [address] Care Team Providers Care Career Development Counselor Name Role Phone Micaela Prasad APRN Primary Care Provider [phone] William Ocasio DO Unavailable Encounter Details Date Type Department Care Team (Late st Contact Info) Description 05/05/2019 Scanned Document [address] [place] [phone] Cardiology, Scan Social History Tobacco Use Types [...] Diagnosis Comments HOLTER MONITOR - 24 HOUR 05/05/2019 documented in this encounter Results * HOLTER MONITOR - 24 HOUR (05/05/2019) Anatomical Region Laterality Modality Other us Scan Cardiology CV CARDIAC SERVICES ORDERABLES F inal Result documented in this encounter Visit Diagnoses Not on filedocumented in this encounter Care Teams Career Development Counselor Relationship Specialty Start Date End Date Micaela Prasad APRN PCP - General General Medicine 05/27/18 William Ocasio DO [address] [place] [address] Industrial Maintenance Technician Gastroenterology 09/10/21 documented as of this encounter
--- OUTSIDE RECORDS SUMMARY | 2025-04-08 08:01 | XMS_ITS | Encounter Summary ---
Author Organization [facility] Address [address] [place] [address] Care Team Providers Care Kettle Cleaner Name Role Phone Micaela Prasad APRN Primary Care Provider William Ocasio DO Unavailable Reason for Visit * Reason Comments Other Results Encounter Details Date Type Department Care Team ([facility] st Contact Info) Description 09/06/2020 Telephone [facility] Urologic Surgery [address] [place] [phone] Edgardo Nelson MD [address] [facility] [address] [place] [address] Other (Results ) Social History Tobacco Use Types Packs/Day Years [...] have Coronavirus / COVID-19? No / Unsure 09/06/2020 8:31 AM EDT documented as of this encounter Plan of Treatment Not on file documented as of this encounter Visit Diagnoses Not on filedocumented in this encounter Care Teams Kettle Cleaner Relationship Specialty Start Date End Date Micaela Prasad APRN PCP - General General Medicine 05/27/18 William Ocasio DO [address] [place] [address] Landscaping Supervisor Gastroenterology 09/10/21 documented as of this encounter
--- OUTSIDE RECORDS SUMMARY | 2025-04-08 08:02 | XMS_ITS | Clinical Summary ---
Author Organization [facility] Address [address] [place] [address] Care Team Providers Care Speech Assistant Name Role Phone Unavailable Primary Care Provider [...]
== END 2025-04-08 07:59 | disposition home or self-care (01) ==
LOC: HO.BBR 07:58
PROVIDERS: PCP Nurse Practitioner; Visit Provider Nurse Practitioner
DX: Z13.89 Encounter for screening for other disorder (principal)